=== PATIENT | male | born 1960 | race Caucasian/White ===

== ENCOUNTER 2017-11-30 16:19 | Inpatient (IN) | END 2017-12-05 19:45 | disposition left against medical advice (07) | DRG 603 ==

== ENCOUNTER 2018-02-10 00:09 | Emergency (ER) | END 2018-02-10 01:36 | disposition home or self-care (01) ==

== ENCOUNTER 2018-02-17 08:10 | Emergency (ER) | END 2018-02-17 13:47 | disposition home or self-care (01) ==

== ENCOUNTER 2018-05-23 17:10 | Emergency (ER) | payer SELFPAY ==
[~2018-05-23] VITALS: Wt 70.0 kg
[~2018-05-23 17:10] MED LIST: ASPI81TA52 PO; CEPH-443 PO; SULF1TAB31 PO
[2018-05-23 17:16] VITALS: BP 112/84; PULSE 90; RESP 18
== END 2018-05-23 21:09 | disposition left against medical advice (07) ==
LOC: FTE 17:10
DX: Z53.21 Procedure and treatment not carried out due to patient leaving prior to being seen by health care provider (principal)